=== PATIENT | male | born 1955 | race Two or more races ===

== ENCOUNTER 2020-08-11 05:50 | Day surgery (SDC) | payer OTHER ==
[~2020-08-11 05:50] MED LIST: COZAAR50 MG PO; LOVASTATIN20 MG PO; METFORMIN HCL500 M3 PO
== END 2020-08-11 10:50 | disposition home or self-care (01) ==
LOC: CIR.AMB 05:50
PROVIDERS: ATTEND Surgery
DX: L72.0 Epidermal cyst (principal); Z20.828 Contact with and (suspected) exposure to other viral communicable diseases